=== PATIENT | male | born 1960 | race Caucasian/White ===

== ENCOUNTER → 2023-05-04 | Outpatient (CLI) | payer BC ==
--- NOTE | 2023-05-04 16:04 | CT ---
EXAMINATION TYPE: CT abdomen pelvis w con DATE OF EXAM: 05/04/2023 COMPARISON: None INDICATION: RIGHT GROIN PAIN, HX OF HERNIA DLP: 443 mGycm, Automated exposure control for dose reduction was used. CONTRAST: 100 mL of Isovue 300. Study performed with Oral Contrast TECHNIQUE: Axial images were obtained from above the diaphragm to the pubic rami in the axial plane a t 5 mm thick sections. Reconstructed images are reviewed on the computer in the coronal plane. FINDINGS: Limited CT sections are obtained the lung bases. The lung bases are clear. CT ABDOMEN: Liver: Normal Spleen: Normal Pancreas: Normal Adrenal glands: The adrenal glands are normal. Gallbladder: Normal Kidneys: No masses are evident. No hydronephrosis is present. No cysts are present. Delayed images were obtained through the kidneys, which remain unremarkable. No renal stones are identified. Aorta: Minimal Vascular calcification is within the aorta. Inferior vena cava: Normal. CT PELVIS: Loops of bowel within the abdomen and pelvis are normal. There are loops of bowel which are incom pletely distended or lack oral contrast limiting their evaluation. Appendix: Not identified. No dilated tubular structure or inflammatory changes evident. Urinary bladder: Normal. Genitourinary structures: Prostate is somewhat prominent. Osseous structures: No suspicious lytic or sclerotic lesions. Degenerative disc changes and mild scol iosis is within the lumbar spine. No suspicious inguinal hernia is identified. IMPRESSION: 1. No acute abnormality CT abdomen and pelvis.
== END | disposition home or self-care (01) ==
LOC: RADCTMAIN 13:48
PROVIDERS: ATTEND Family Medicine
DX: R10.31 Right lower quadrant pain (principal)
CPT/HCPCS: 74177; Q9967